=== PATIENT | male | born 2000 | race Caucasian/White ===

== ENCOUNTER 2020-02-04 21:37 | Observation (INO) | payer OTHER ==
[~2020-02-04] VITALS: Ht 195.6 cm; Wt 91.0 kg
[2020-02-04 22:41] LABS: BASO % 0.3 % (0.0-2.0); EOS % 0.1 % (0-4.0); GRAN # 13.1 (1.4-6.5); HEMATOCRIT 42.1 % (36.0-47.0); HEMOGLOBIN 14.9 g/dl (12.5-16.1); LYMPH # 1.3 (1.2-3.4); LYMPH % 8.4 % (20.0-51.0); MEAN CELL VOLUME 88 fl (80.0-95.0); MEAN CORPUSCULAR HEMOGLOBIN 31 pg (26.0-32.0); MEAN CORPUSCULAR HGB CONC 35 g/dl (33.0-37.0); MEAN PLATELET VOLUME 10.3 fl (7.4-10.4); MONO # 0.7 (0.1-0.6); MONO % 4.9 % (1.7-9.3); PLATELET COUNT 235 K/mm3 (130-400); RED BLOOD COUNT 4.79 M/mm3 (4.20-5.60); REDCELL DISTRIBUTION WIDTH-CV 12.6 % (11.5-14.5)
[2020-02-04 22:54] LABS: ALANINE AMINOTRANSFERASE 24 U/L (4-49); ALBUMIN 4.5 gm/dL (3.5-5.0); ALKALINE PHOSPHATASE 124 U/L (50-136); ANION GAP 9 mmol/L (7-16); AST,SGOT 38 U/L (15-37); BILIRUBIN,TOTAL 0.8 mg/dL (0.0-1.0); BLOOD UREA NITROGEN 29 mg/dL (9-20); CALCIUM 9.6 mg/dL (8.4-10.2); CARBON DIOXIDE 26 mmol/L (22-30); CHLORIDE 101 mmol/L (98-107); CREATININE, serum 0.95 (0.66-1.25); GLUCOSE 144 mg/dL (74-106); LIPASE 69 U/L (23-300); POTASSIUM 3.2 mmol/L (3.4-5.0); SODIUM 136 mmol/L (137-145); TOTAL PROTEIN 7.7 gm/dL (6.4-8.2)
[2020-02-04 22:55] LABS: C-REACTIVE PROTEIN < 0.5 mg/dL (0.0-0.9)
[2020-02-04 23:12] LABS: COLLECTION METHOD CLEAN CATCH
[2020-02-04 23:16] LABS: MUCOUS Present /lpf; PH 5 (5-8); SQUAMOUS EPITHELIAL None Seen /hpf; URINE APPEARANCE Clear; URINE BACTERIA None Seen /hpf; URINE BILIRUBIN Negative (NEGATIVE); URINE BLOOD Negative (NEGATIVE); URINE COLOR Yellow; URINE GLUCOSE Negative (NEGATIVE); URINE KETONE 1+ (NEGATIVE); URINE LEUKOCYTE ESTERASE Negative (NEGATIVE); URINE NITRATE Negative (NEGATIVE); URINE PROTEIN(semi-quant) Negative (NEGATIVE); URINE RBC None Seen /hpf; URINE UROBILINOGEN Negative (NEGATIVE)
[2020-02-05] VITALS (12 sets, daily range): BP systolic 92–134; BP diastolic 35–77; PULSE 47–72; TEMP 98–98.7
--- NOTE | 2020-02-05 00:43 | NUR ---
RECEIVED VIA STRETCHER FROM ED, ALERT AND ORIENTED MALE WITH DX APPENDICITIS. IVF TO LEFT FOREARM. ABLE TO TRANSFER FROM CART TO BED WITHOUT PROBLEM.
[2020-02-05] MEDS ORDERED: DOXYCYCLINE 10100 MG PO (01:26)
--- NOTE | 2020-02-05 01:30 | NUR ---
PT UP TO BATHROOM WITH STEADY GAIT, VOIDS AND BACK TO BED. RATES PAIN 1/10 AT THIS TIME, DENIES NAUSEA.
--- NOTE | 2020-02-05 05:00 | NUR ---
REMAINS NPO FOR SURGERY TODAY.
--- NOTE | 2020-02-05 08:00 | NUR ---
Denies pain or nausea. NPO for surgery. IV fluids infusing.
--- NOTE | 2020-02-05 13:34 | NUR ---
[employer] offered prayer and support with patient while mother was in room.
--- NOTE | 2020-02-05 14:00 | NUR ---
To surgery per bed. Mother here.
[2020-02-05] MEDS ORDERED: NORCO 325 MG-51 TAB PO (16:25)
[2020-02-05] MEDS ORDERED: COLACE 100100 MG/CAP PO (16:25)
[2020-02-05] MEDS ORDERED: MOTRIN 600600 MG/TAB PO (16:25)
--- NOTE | 2020-02-05 16:45 | NUR ---
Received patient per bed from PACU. Very drowsy. No c/o pain or nausea. Abdominal lap sites x 3 CDI. Vital signs stable.
--- NOTE | 2020-02-05 18:30 | NUR ---
VSS. Sleeping. Mother in room.
--- NOTE | 2020-02-05 19:27 | NUR ---
PT UP TO VOID, TAKES PERCOCET FOR PAIN WHEN UP 8/10. ATE SANDWICH BOX WITHOUT N/V. WANTS TO GO HOME. DISCHARGE ORDER RECEIVED FROM DR WANG.
--- NOTE | 2020-02-05 20:00 | NUR ---
DISCHARGE INSTRUCTIONS REVIEWED WITH PATIENT AND MOM. DC'D IV SITE TO LEFT FOREARM, ANGIOCATH INTACT. GETTING DRESSED ON OWN.
--- NOTE | 2020-02-05 20:12 | NUR ---
DISCHARGED VIA W/C TO PRIVATE CAR. DISCHARGE INSTRUCTIONS SENT WITH PATIENT. MOM ACCOMPANIES. PERSONAL BELONGINGS WITH PATIENT.
== END 2020-02-05 20:12 | disposition home or self-care (01) ==
LOC: COL.ER 21:37 → JCC 23:46
PROVIDERS: Nurse Practitioner; ADMIT Surgery
DX: K35.80 Unspecified acute appendicitis (principal); F17.210 Nicotine dependence, cigarettes, uncomplicated
CPT/HCPCS: G0378; J0330; J1100; J1885; J2405; J2543; J2704; J3010; J3480; J7030; J7120; Q9967